=== PATIENT | female | born 1985 | race Caucasian/White ===

== ENCOUNTER 2017-02-24 04:34 | Emergency (ER) | payer SELFPAY ==
[2017-02-24 05:03] LABS: APPEARANCE HAZY (CLEAR); BILIRUBIN NEGATIVE (NEGATIVE); COLOR YELLOW (YELLOW); GLUCOSE NEGATIVE (NEGATIVE); KETONE NEGATIVE (NEGATIVE); LEUKOCYTE ESTERASE 1+ (NEGATIVE); NITRITE NEGATIVE (NEGATIVE); PROTEIN TRACE mg/dL (NEGATIVE); SPECIFIC GRAVITY 1.025 (1.005-1.020); UROBILINOGEN NORMAL (NORMAL)
[2017-02-24 05:27] LABS: BASOPHILS 0.1 % (0-2); EOSINOPHILS 1.2 % (0-7); HEMATOCRIT 39.9 % (36.0-48.0); HEMOGLOBIN 13.3 g/dL (12-16); IMMATURE GRANULOCYTES 0.2 % (0-5); LYMPHOCYTES 7.9 % (15-50); MCH 31.1 pg (26.0-34.0); MCHC 33.3 g/dL (31.0-37.0); MCV 93.4 fL (80.0-100.0); MEAN PLATELET VOLUME 10.1 fL (7.4-10.4); MONOCYTES 4.4 % (2-11); NEUTROPHILS 86.2 % (40-80); PLATELET COUNT 206 10x3/uL (130-400); RBC 4.27 10x6/uL (4.00-5.40); RDW 12.5 % (11.5-14.5); WBC 11.4 10x3/uL (4.8-10.8)
[2017-02-24 05:52] LABS: HCG SERUM NEGATIVE (NEGATIVE)
[2017-02-24 05:55] LABS: ALBUMIN 3.6 g/dL (3.4-5.0); ALKALINE PHOSPHATASE 64 U/L (46-116); ALT (SGPT) 28 U/L (10-68); CALC OSMOLALITY 271 mosm/kg (275-300); CHLORIDE - SERUM 101 mmol/L (98-107); CREATININE - SERUM 0.9 mg/dL (0.6-1.3); GLUCOSE 122 mg/dL (74-106); LIPASE 107 U/L (73-393); POTASSIUM - SERUM 3.5 mmol/L (3.5-5.1); PROTEIN - SERUM 7.5 g/dL (6.4-8.2); SODIUM 136 mmol/L (136-145); UREA NITROGEN 11 mg/dL (7-18); eGFR NON AFRICAN AMERICAN 77 mL/min (90-120)
[2017-02-24 06:47] LABS: UDS - AMPHET NEGATIVE QUAL (NEGATIVE); UDS - BARB NEGATIVE QUAL (NEGATIVE); UDS - BENZO POSITIVE QUAL (NEGATIVE); UDS - COCAINE NEGATIVE QUAL (NEGATIVE); UDS - METH NEGATIVE QUAL (NEGATIVE); UDS - OPIATE POSITIVE QUAL (NEGATIVE); UDS - PCP NEGATIVE QUAL (NEGATIVE); UDS - THC NEGATIVE QUAL (NEGATIVE)
== END 2017-02-24 07:26 | disposition home or self-care (01) ==
LOC: D.ER 04:34
PROVIDERS: Emergency Medicine
DX: A08.4 Viral intestinal infection, unspecified (principal); R91.1 Solitary pulmonary nodule; J98.4 Other disorders of lung

== ENCOUNTER 2017-05-08 16:47 | Emergency (ER) | payer MEDICAID ==
[2017-05-08 17:52] LABS: BASOPHILS 0.3 % (0-2); EOSINOPHILS 1.7 % (0-7); HEMATOCRIT 38.2 % (36.0-48.0); HEMOGLOBIN 12.6 g/dL (12-16); IMMATURE GRANULOCYTES 0.2 % (0-5); LYMPHOCYTES 29.2 % (15-50); MCH 31.5 pg (26.0-34.0); MCV 95.5 fL (80.0-100.0); MEAN PLATELET VOLUME 10.2 fL (7.4-10.4); MONOCYTES 8.5 % (2-11); NEUTROPHILS 60.1 % (40-80); PLATELET COUNT 233 10x3/uL (130-400); RDW 12.7 % (11.5-14.5); WBC 8.6 10x3/uL (4.8-10.8)
[2017-05-08 17:55] LABS: APPEARANCE CLEAR (CLEAR); BILIRUBIN NEGATIVE (NEGATIVE); COLOR DK YELLOW (YELLOW); GLUCOSE NEGATIVE (NEGATIVE); KETONE NEGATIVE (NEGATIVE); NITRITE POSITIVE (NEGATIVE); PROTEIN NEGATIVE (NEGATIVE); SPECIFIC GRAVITY 1.005 (1.005-1.020); UROBILINOGEN NORMAL (NORMAL)
[2017-05-08 17:57] LABS: AMORPHOUS SEDIMENT <1+ /lpf (NONE SEEN); BACTERIA FEW /hpf (NONE SEEN); RED CELLS - URINE 0-5 /hpf (0-5)
[2017-05-08 18:12] LABS: HCG SERUM NEGATIVE (NEGATIVE)
[2017-05-08 18:19] LABS: ALBUMIN 3.7 g/dL (3.4-5.0); ANION GAP 12.2 mmol/L (8-16); BILIRUBIN - TOTAL 0.1 mg/dL (0.2-1.3); CALCIUM 9.2 mg/dL (8.5-10.1); POTASSIUM - SERUM 4.2 mmol/L (3.5-5.1); PROTEIN - SERUM 6.8 g/dL (6.4-8.2)
== END 2017-05-08 20:10 | disposition home or self-care (01) ==
LOC: D.ER 16:47
PROVIDERS: Nurse Practitioner Family
DX: N39.0 Urinary tract infection, site not specified (principal); R10.9 Unspecified abdominal pain; N83.209 Unspecified ovarian cyst, unspecified side

== ENCOUNTER 2017-12-26 07:12 | Day surgery (SDC) | payer MEDICAID ==
[2017-12-25 11:41] LABS: BASOPHILS 0.3 % (0-2); EOSINOPHILS 1.4 % (0-7); HEMATOCRIT 38.9 % (36.0-48.0); IMMATURE GRANULOCYTES 0.3 % (0-5); LYMPHOCYTES 23.8 % (15-50); MCH 31.6 pg (26.0-34.0); MCHC 33.4 g/dL (31.0-37.0); MCV 94.6 fL (80.0-100.0); MEAN PLATELET VOLUME 10.2 fL (7.4-10.4); MONOCYTES 6.2 % (2-11); PLATELET COUNT 248 10x3/uL (130-400); RBC 4.11 10x6/uL (4.00-5.40); RDW 12.7 % (11.5-14.5); WBC 6.5 10x3/uL (4.8-10.8)
[~2017-12-26] VITALS: Ht 160 cm; Wt 91.6 kg
--- NOTE | ~2017-12-26 | OP ---
PATIENT NAME: TRINA LUCIA MEDICAL RECORD: [id number] :84 LOCATION:D[facility] ADMISSION DATE: SURGEON: JAY PAREDES MD DATE OF OPERATION: 12/26/2017 PREOPERATIVE DIAGNOSES: 1. Pelvic pain. 2. Pelvic mass. POSTOPERATIVE DIAGNOSES: 1. Bilateral ovarian cyst. 2. Right hematosalpinx and tube torsion. PROCEDURES PERFORMED: 1. Diagnostic laparoscopy. 2. Cystectomy, right. 3. Salpingectomy, right. 4. Cystectomy, left. SURGEON: Jay Paredes MD ANESTHESIOLOGIST: Dr. Hunter ANESTHESIA: General anesthetic with endotracheal intubation. FINDINGS: A 3-4 cm right ovarian cyst. A 2 cm left ovarian cyst. Right tube with engorged and fluid filled with apparent torsion between 180 and 360 degrees along the long axis. What was visualized of the uterus and the rest of the abdominal anatomy was unremarkable. SPECIMENS REMOVED: Right cyst wall and right tube. SPECIMEN DISPOSITION: Pathology. ESTIMATED BLOOD LOSS: Less than or equal to 50. FLUIDS: 1 liter of lactated Ringer's. URINE OUTPUT: Quantity sufficient void prior to procedure. DRAINS: None. COMPLICATIONS: None. INDICATIONS: The patient is a 32-year-old female with known pelvic cyst and increasing pelvic pain. The patient is consented for diagnostic laparoscopy and any indicated procedure. DESCRIPTION OF PROCEDURE: After informed consent was assured, the patient was taken to the operating room where anesthetic was obtained. The patient was prepped and draped and trocar was inserted. The patient was placed in Trendelenburg with pneumoperitoneum developed. Accessory ports were now placed in the right lower quadrant and midline. Through the 10-12 port in the midline, a grasper was placed and the bowel swept free of the pelvis with the above findings. The right tube was now grasped and elevated. Using a Gyrus OPERATIVE REPORT [id number] TRINA LUCIA coagulation cutter, the tube was removed from its attachments to the adnexa. The tube was pulled free of the pelvis and passed to the attendant. Attention was directed to the right cyst. The ovary was held fast and using coagulation cutter, the surface of the ovarian cyst was cauterized and the capsule was undermined. The cyst was now opened and the cyst wall removed. The cyst wall sent to pathology. The smaller cyst contained within the left ovary was opened and the cyst drained. The pelvis was now irrigated and all irrigant removed. Lidocaine was placed over the operative field directly. Inspection of the operative field reveals adequate hemostasis. Pneumoperitoneum was released and the trocars were removed. The skin was approximated with subcuticular stitch and sterile dressings applied. Sponge, lap, and needle counts correct times 2. The patient was taken to the recovery room. TRANSINT:[id number] Voice Confirmation ID: [id number] DOCUMENT ID: [id number] 01/15/18 Edited to include procedures performed, [email or web address]. JAY PAREDES MD at 0932 CC: [id number] DICTATION DATE: 12/26/17 1218 [employer] ADDED ASSESSOR: 12/26/17 1230 [facility] 12/26/17 [id number] [place] [address]
[~2017-12-26 07:12] MED LIST: IBUPROFEN200 MG PO; KLONOPIN1 MG PO
[2017-12-26 07:59] VITALS: BP 122/74; Ht 160 cm; Wt 91.6 kg
[2017-12-26 08:36] LABS: HCG URINE NEGATIVE (NEGATIVE)
== END 2017-12-26 14:40 | disposition home or self-care (01) ==
LOC: D.OPS 07:12 → D.PAN 09:15 → D.OPS 09:15
PROVIDERS: Obstetrics & Gynecology
DX: N83.6 Hematosalpinx (principal); N70.11 Chronic salpingitis; N83.01 Follicular cyst of right ovary; N83.202 Unspecified ovarian cyst, left side; N83.521 Torsion of right fallopian tube; N83.8 Other noninflammatory disorders of ovary, fallopian tube and broad ligament; Z01.812 Encounter for preprocedural laboratory examination

== ENCOUNTER 2018-07-09 00:13 | Observation (INO) | payer MEDICAID ==
[2018-07-09] VITALS (54 sets, daily range): BP systolic 89–126; BP diastolic 48–101; Ht 160 cm; Wt 103.2 kg
[~2018-07-09] VITALS: Ht 160 cm; Wt 103.2 kg
[2018-07-09 00:42] LABS: BASOPHILS 0.4 % (0-2); EOSINOPHILS 1.7 % (0-7); HEMOGLOBIN 12.2 g/dL (12-16); IMMATURE GRANULOCYTES 0.1 % (0-5); LYMPHOCYTES 34.7 % (15-50); MCH 30.7 pg (26.0-34.0); MCV 93.2 fL (80.0-100.0); MEAN PLATELET VOLUME 10.1 fL (7.4-10.4); MONOCYTES 7.5 % (2-11); NEUTROPHILS 55.6 % (40-80); PLATELET COUNT 300 10x3/uL (130-400); RBC 3.97 10x6/uL (4.00-5.40); RDW 12.4 % (11.5-14.5)
[2018-07-09 00:55] LABS: ALBUMIN 3.6 g/dL (3.4-5.0); ALKALINE PHOSPHATASE 56 U/L (46-116); ALT (SGPT) 23 U/L (10-68); BILIRUBIN - TOTAL 0.26 mg/dL (0.2-1.3); CALC OSMOLALITY 274 mosm/kg (275-300); CALCIUM 8.9 mg/dL (8.5-10.1); CARBON DIOXIDE 25.9 mmol/L (21.0-32.0); CHLORIDE - SERUM 103 mmol/L (98-107); CREATININE - SERUM 0.9 mg/dL (0.6-1.3); MAGNESIUM - SERUM 1.9 mg/dL (1.8-2.4); POTASSIUM - SERUM 3.9 mmol/L (3.5-5.1); PROTEIN - SERUM 7.6 g/dL (6.4-8.2); SODIUM 139 mmol/L (136-145); UREA NITROGEN 11 mg/dL (7-18); eGFR NON AFRICAN AMERICAN 76 mL/min (90-120)
[2018-07-09 00:56] LABS: GLUCOSE 70 mg/dL (74-106)
[2018-07-09 01:15] LABS: APPEARANCE CLEAR (CLEAR); BILIRUBIN NEGATIVE (NEGATIVE); COLOR STRAW (YELLOW); GLUCOSE NEGATIVE (NEGATIVE); KETONE NEGATIVE (NEGATIVE); NITRITE NEGATIVE (NEGATIVE); PROTEIN NEGATIVE (NEGATIVE); SPECIFIC GRAVITY 1.005 (1.005-1.020); UROBILINOGEN NORMAL (NORMAL)
[2018-07-09 01:16] LABS: HCG URINE NEGATIVE (NEGATIVE)
[2018-07-09 01:21] LABS: UDS - AMPHET NEGATIVE QUAL (NEGATIVE); UDS - BARB NEGATIVE QUAL (NEGATIVE); UDS - BENZO POSITIVE QUAL (NEGATIVE); UDS - COCAINE NEGATIVE QUAL (NEGATIVE); UDS - OPIATE NEGATIVE QUAL (NEGATIVE); UDS - PCP NEGATIVE QUAL (NEGATIVE); UDS - THC NEGATIVE QUAL (NEGATIVE)
[2018-07-10] VITALS (10 sets, daily range): BP systolic 102–126; BP diastolic 52–71
[2018-07-10 04:27] LABS: BASOPHILS 0.4 % (0-2); EOSINOPHILS 4.9 % (0-7); HEMATOCRIT 34.4 % (36.0-48.0); HEMOGLOBIN 11.3 g/dL (12-16); IMMATURE GRANULOCYTES 0.2 % (0-5); LYMPHOCYTES 40.6 % (15-50); MCHC 32.8 g/dL (31.0-37.0); MCV 94.2 fL (80.0-100.0); MEAN PLATELET VOLUME 10.1 fL (7.4-10.4); MONOCYTES 7.4 % (2-11); NEUTROPHILS 46.5 % (40-80); RBC 3.65 10x6/uL (4.00-5.40); RDW 12.7 % (11.5-14.5)
[2018-07-10 04:37] LABS: PLATELET COUNT 225 10x3/uL (130-400); WBC 5.3 10x3/uL (4.8-10.8)
[2018-07-10 05:05] LABS: CALC OSMOLALITY 276 mosm/kg (275-300); CALCIUM 8.3 mg/dL (8.5-10.1); CHLORIDE - SERUM 109 mmol/L (98-107); CREATININE - SERUM 0.8 mg/dL (0.6-1.3); GLUCOSE 101 mg/dL (74-106); POTASSIUM - SERUM 3.9 mmol/L (3.5-5.1); SODIUM 139 mmol/L (136-145); UREA NITROGEN 9 mg/dL (7-18); eGFR NON AFRICAN AMERICAN 87 mL/min (90-120)
== END 2018-07-10 11:36 | disposition home or self-care (01) ==
LOC: D.ER 00:13 → D.EDHOLD 01:47 → OBSVTIME 01:47 → D.ICU 01:47
PROVIDERS: Emergency Medicine; ADMIT Internal Medicine Nephrology
DX: T44.7X1A Poisoning by beta-adrenoreceptor antagonists, accidental (unintentional), initial encounter (principal); F17.203 Nicotine dependence unspecified, with withdrawal; I95.9 Hypotension, unspecified

== ENCOUNTER 2020-02-09 21:29 | Emergency (ER) | payer MEDICAID ==
[~2020-02-09] VITALS: Ht 160 cm; Wt 91.8 kg
[2020-02-09 21:44] VITALS: BP 130/78; Ht 160 cm; Wt 91.8 kg
[2020-02-09] MEDS ORDERED: KEFLEX500 MG PO (22:54)
== END 2020-02-09 22:57 | disposition home or self-care (01) ==
LOC: D.ER 21:29
DX: S91.311A Laceration without foreign body, right foot, initial encounter (principal); W22.8XXA Striking against or struck by other objects, initial encounter; Y93.9 Activity, unspecified; Y92.9 Unspecified place or not applicable

== ENCOUNTER 2020-10-05 05:00 | Observation (INO) | payer MEDICAID ==
[2020-10-01 09:38] LABS: BASOPHILS 0.4 % (0-2); EOSINOPHILS 1.4 % (0-7); HEMOGLOBIN 11.9 g/dL (12-16); IMMATURE GRANULOCYTES 0.2 % (0-5); LYMPHOCYTE ABS# 1.48 10x3/uL (1.18-3.74); LYMPHOCYTES 28.7 % (15-50); MCH 30.2 pg (26.0-34.0); MCHC 33.1 g/dL (31.0-37.0); MCV 91.4 fL (80.0-100.0); MEAN PLATELET VOLUME 9.7 fL (7.4-10.4); MONOCYTES 8.3 % (2-11); NEUTROPHIL ABS# 3.14 10x3/uL (1.56-6.13); PLATELET COUNT 234 10x3/uL (130-400); RBC 3.94 10x6/uL (4.00-5.40); RDW 12.8 % (11.5-14.5); WBC 5.2 10x3/uL (4.8-10.8)
[2020-10-01 09:44] LABS: UDS - AMPHET NEGATIVE QUAL (NEGATIVE); UDS - BARB NEGATIVE QUAL (NEGATIVE); UDS - BENZO NEGATIVE QUAL (NEGATIVE); UDS - COCAINE NEGATIVE QUAL (NEGATIVE); UDS - OPIATE NEGATIVE QUAL (NEGATIVE); UDS - PCP NEGATIVE QUAL (NEGATIVE); UDS - THC NEGATIVE QUAL (NEGATIVE)
[~2020-10-05] VITALS: Ht 160 cm; Wt 95.9 kg
[~2020-10-05 05:00] MED LIST changes: +KEFLEX500 MG PO
[2020-10-05 06:18] LABS: HCG URINE NEGATIVE (NEGATIVE)
[2020-10-05 06:22] VITALS: BP 121/60; BMI 37.4
--- NOTE | 2020-10-05 07:56 | NUR ---
ARRIVAL TO OR AT 0716. PT REQUEST DENTURES GIVEN BACK IMMEDIATELY POST-OP, DENTURE X 1 (TOP PLATE) PLACED IN LABELED CONTAINER AND REMAINS IN OR WITH PATIENT FOR TRANSFER TO RECOVERY WITH PATIENT. NOTED, SHANNON MARTINEZ
--- NOTE | 2020-10-05 10:10 | NUR ---
RECEIVED PT VIA BED ACCOMPANIED BY PACU STAFF. PT TO ROOM 1274. PT DROWSY, BUT AWAKE AND ORIENTED X3. VSS. O2 VIA NC. IV INFUSING TO GRAVITY; PLACED ON IVP AT 125CC/HR. 3 LAPROSCOPIC ABDOMINAL INCISIONS NOTED-1 @ UMBILICUS AND 1 EACH AT RIGHT AND LEFT LOWER ABD QUADRANTS. ALL INCISIONS CDI WITH DERMABOND AND SLIGHT BRUISING AT INCISION SITES. PT STATES SHE IS COMFORTABLE AND DENIES NEED FOR PAIN MEDICATION AT THIS TIME. ROY CATHETER SECURED TO RIGHT LEG WITH STATLOCK DEVICE. ROY DRAINING MILKY, YELLOW URINE TO GRAVITY. PT'S MOTHER AT BEDSIDE.
[2020-10-05 10:13] VITALS: BP 141/72
[2020-10-05 10:30] VITALS: BP 138/66
--- NOTE | 2020-10-05 10:30 | NUR ---
WATER AND JUICE GIVEN. PT DRINKING AND TOLERATING LIQUIDS WELL.
[2020-10-05 10:45] VITALS: BP 130/63
--- NOTE | 2020-10-05 10:50 | NUR ---
PT STATES SHE IS CRAMPING AND WOULD LIKE PAIN MEDICATION.
[2020-10-05 10:59] VITALS: BP 141/67; Ht 160 cm; Wt 95.9 kg
--- NOTE | 2020-10-05 11:05 | NUR ---
DR. PAREDES CALLED TO UNIT. STATUS UPDATE GIVEN. ORDERS RECEIVED.
--- NOTE | 2020-10-05 11:30 | NUR ---
REPORT GIVEN TO Nan GASCA RN.
--- NOTE | 2020-10-05 11:30 | NUR ---
ROY CATH REMOVED WITH CATH INTACT. TOTAL OUTPUT OF 350ML. PT UNDERSTANDS TO CALL NURSE WHEN FEELS NEED TO VOID. CALL LIGHT IN REACH. SIDE RAILS UP X 2
--- NOTE | 2020-10-05 12:14 | NUR ---
ZOFRAN GIVEN FOR C/O NAUSEA, ALSO GIVEN CRACKERS AND ERNESTO NAVEED. SIG OTHER REMAINS AT BEDSIDE, CALL LIGHT IN REACH.
--- NOTE | 2020-10-05 12:29 | NUR ---
PT SITTING UP IN BED AND STATES NAUSEA IS BETTER, SHE IS TRYING TO EAT AT THIS TIME WITH SIG OTHER AT BEDSIDE.
--- NOTE | 2020-10-05 12:46 | NUR ---
SIG OTHER GIVEN WRITTEN SCRIPTS FOR NEURONTIN 300MG, MOBIC 15MG AND PERCOCET 7.5/325MG SO THAT SHE CAN TAKE THEM TO PHARMACY NOW.
[2020-10-05] MEDS ORDERED: MOBIC7.5 MG PO ×2 (12:48→12:49)
[2020-10-05] MEDS ORDERED: PERCOCET 7.5/321 TAB PO (12:49)
[2020-10-05] MEDS ORDERED: NEURONTIN 300300 MG PO (12:50)
--- NOTE | 2020-10-05 13:14 | NUR ---
DR PAREDES ON UNIT AND AT BEDSIDE. MAY D/C HOME TODAY PT MUST BE ABLE TO VOID AND TOLERATE FLUIDS.
--- NOTE | 2020-10-05 14:06 | NUR ---
PT RESTING ON HER RIGHT SIDE, EYES CLOSED AND RESP EVEN, NO DISTRESS NOTED.
--- NOTE | 2020-10-05 14:30 | NUR ---
PT UP TO VOID WITH RN ASSISTANCE. SHE IS ABLE TO VOID 100ML WITHOUT COMPLAINTS. PRIOR TO GETTING BACK IN TO BED SHE COMPLAINS OF NAUSEA, VOMITS APPROX 50ML YELLOW BILE LIKE SUBSTANCE, AFTERWARDS SHE STATES THAT PRESSURE IS BETTER. GOWN CHANGED, AARTI PAD AND MESH BRIEFS PLACED ON, BACK TO BED AND ENCOURAGED TO LAY ON HER LEFT SIDE IF POSSIBLE. JAKE OFFERED BUT PT STATES THAT SHE THINKS SHE GETS A MIGRAINE FROM THAT AND ASK IF DR PAREDES COULD BE CALLED FOR NEW MED. SIG OTHER AT BEDSIDE. CALL LIGHT IN REACH.
--- NOTE | 2020-10-05 15:06 | NUR ---
DR PAREDES CALLED AND REPORT GIVEN OF PT VOMITING AND UNABLE TO GIVEN ZOFRAN DUE TO PT C/O HEADACHE WHEN TAKEN. NEW ORDER FOR REGLAN 10MG IV RECIEVED, HOLD DISCHARGE AT THIS TIME.
--- NOTE | 2020-10-05 15:40 | NUR ---
REGLAN GIVEN SCANNED TO EMAR, TORDAL ALSO GIVEN AT THIS TIME. PT RATES PAIN AT 4/10 AND STATES "IT JUST COMES AND GOES." SHE DOES STATES THAT THE NAUSEA IS BETTER AND HAS BEEN ABLE TO EAT SOME CRACKERS. SIG OTHER REMAINS AT BEDSIDE, SIDE RAILS UP X 2 WITH CALL LIGHT IN REACH.
--- NOTE | 2020-10-05 16:02 | NUR ---
PT UP TO VOID BUT STATES SHE CAN NOT GO, EXPLAINED THAT SHE MAY NOT HAVE A FULL BLADDER SINCE SHE HAS NOT BEEN DRINKING MUCH. BLADDER SCANNED WITH TOTAL LESS THAT 100ML. REASSURED HER AND ENCOURAGED HER TO TRY AND DRINK MORE, STATES THAT NAUSEA IS "ALMOST GONE" IV FLUID BOLUS ALSO STARTED AT THIS TIME. CALL LIGHT IN REACH, WITH SIG OTHER AT BEDSIDE.
--- NOTE | 2020-10-05 17:01 | OP ---
PATIENT NAME: TRINA MORA MEDICAL RECORD: [id number] :84 LOCATION:[facility] ADMISSION DATE:10/05/20 SURGEON: REHAN PAREDES MD DATE OF OPERATION: 10/05/2020 PREOPERATIVE DIAGNOSIS: Abnormal uterine bleeding. POSTOPERATIVE DIAGNOSIS: Abnormal uterine bleeding. PROCEDURE: 1. Diagnostic laparoscopy. 2. Total laparoscopic hysterectomy. 3. Bilateral salpingectomy. SURGEON: Rehan Paredes MD UNIFORM ATTENDANT: Graham. DIATHERMY EQUIPMENT REPAIRER: Beverly Cunningham. ANESTHESIOLOGIST: Dr. Bailey. ANESTHETIC: General. FINDINGS: Uterus is slightly boggy and minimally enlarged. Left ovary is unremarkable. Right ovary with a 3 cm simple cyst. What was visualized of the abdominal anatomy is unremarkable. SPECIMENS REMOVED: Uterus, cervix and bilateral tubes. SPECIMEN DISPOSITION: Pathology. ESTIMATED BLOOD LOSS: Less than or equal to 75 mL. FLUIDS: 1 liter lactated Ringer's. URINE OUTPUT: 500 mL clear urine. COMPLICATIONS: None. DRAINS: Blanton to gravity. INDICATIONS: The patient is a 34-year-old multiparous female with abnormal uterine bleeding. The patient also has dysmenorrhea. The patient requests definitive therapy. Risks, benefits and limitations have been discussed. DESCRIPTION OF PROCEDURE: After informed consent was assured, the patient was taken to the operating room where anesthetic was obtained without difficulty. The patient was now prepped and draped after being placed in [facility] stirrups. Uterine manipulator was placed and attention was directed to the abdomen. An incision was made at the umbilicus to accommodate a 5-mm bladeless trocar, which was inserted without difficulty. Pneumoperitoneum was now established and the patient was placed in steep Trendelenburg position. Accessory ports were now placed in the right and left lower quadrants. Through the right lower quadrant port, a grasper was inserted. The left tube was elevated and using a OPERATIVE REPORT [id number] TRINA MORA Thunderbeat coagulation cutter from the left portions of the tube were compressed, coagulated, and . The fimbria was densely adhesed to the ovary and sidewall, and this was off the tube to be taken out later in the case. Dissection was carried out underneath the left tube across the uteroovarian and round ligaments. The anterior leaf of the broad ligament was opened and the bladder flap developed to the midline. The posterior leaf was dissected free of the vascular bundle of the left, which was now compressed, coagulated, and slightly below the level of the internal os. Attention was now directed to the right side. The right tube was elevated in similar manner and this side being free of adhesions. The mesosalpinx was grasped, coagulated, and . Dissection was carried out over the uteroovarian and round ligaments. The dissection was carried down through the anterior leaf of the broad ligament and the bladder flap now fully developed in the midline. Posterior leaf was dissected free of the vascular bundle. Vascular bundle of the right side was now compressed, coagulated, and . Attention was directed to the bladder. Retrograde filling of the bladder with sterile milk was performed and the borders of the bladder clearly delineated. Dissection continues anteriorly, both sharply and with the Thunderbeat coagulation cutter to free the remaining tissues. Using a peanut, blunt dissection was now performed until the uterine manipulator cup was clearly outlined. The vaginal vault was entered from the left side. Dissection was carried from the 9 to 12 o'clock and then 6 o'clock in a counterclockwise fashion. After completion of the dissection from the left, the remaining portion of the uterus was removed from its attachments to the vagina, starting at the 12, moving in clockwise to 6 o'clock position. Uterus was now pulled into the vagina and pneumoperitoneum remains. Some bleeding was noted from the right vascular bundle, which was easily controlled with Thunderbeat coagulation cutter. Attention was now directed to the vagina. After removing the specimen, then passing the specimen off the table, stitch was placed through the posterior cul-de-sac to the left of midline across the peritoneum and through the left uterosacral ligament. The stitch was brought back across the peritoneum and through the right uterosacral ligament and back out into the vagina to the right of midline this time. This stitch was held on a hemostat to be tied later. Using a Stratafix monofilament suture, the cuff was closed in an anterior to posterior fashion. Once the cuff was closed, the modified Madden's uterine suspension and culdoplasty was tied. The pneumoperitoneum was reestablished and the pelvis was irrigated and irrigant removed. The portion of left tube was now elevated from the right side and using the Thunderbeat coagulation cutter was removed from its attachments to the sidewall. The remaining portion of the tube was removed from the pelvis on the right side. The right ovary was now grasped and elevated. The simple cyst was opened and drained using a Thunderbeat coagulation cutter. Pelvis was now irrigated, irrigant removed. Jovan was placed over the operative field. Pneumoperitoneum was released. Sponge, lap and needle counts were correct times 2 as the trocars were removed and all sites were closed with a subcuticular stitch and Dermabond placed. The patient was awakened and went to the recovery room in stable condition. TRANSINT:[id number] Voice Confirmation ID: [id number] DOCUMENT ID: [id number] OPERATIVE REPORT [id number] TRINA MORA JOSEPH E MD at 1701 CC: [id number] DICTATION DATE: 10/05/20918 [employer]ETING: 10/05/20 1501 ADM IN [facility] [address] [id number]
--- NOTE | 2020-10-05 17:01 | NUR ---
PT HAS VOIDED 200ML WITHOUT COMPLAINT, ALSO DENIES NAUSEA AND IS SITTING UP ON SIDE OF BED EATING.
--- NOTE | 2020-10-05 17:21 | NUR ---
IV DISCONTINUED WITH CATH INTACT. VERBAL AND WRITTEN DISCHARGE INSTRUCTIONS GONE OVER. SHE STATES HER UNDERSTANDING AND DENIES QUESTIONS OR CONCERNS. GETTING DRESSED AND WILL CALL FOR NURSE WHEN READY FOR WHEELCHAIR.
--- NOTE | 2020-10-05 17:34 | NUR ---
PT CALLS OUT THAT SHE IS READY FOR WHEELCHAIR, THERAPEUTIC STRATEGY LEAD NOTIFIED
--- NOTE | 2020-10-05 17:39 | NUR ---
PT TAKEN OUT BY WHEELCHAIR, HOME BY PRIVATE CAR WITH FAMILY
== END 2020-10-05 17:40 | disposition home or self-care (01) ==
LOC: D.OPS 05:00 → D.LD 09:28 → OBSVTIME 13:28 → D.LD 13:28 → D.OPS 13:28 → D.LD 17:40
PROVIDERS: ADMIT Obstetrics & Gynecology; ATTEND Obstetrics & Gynecology
DX: N93.9 Abnormal uterine and vaginal bleeding, unspecified (principal)